=== PATIENT | female | born 1940 | race Two or more races ===

== ENCOUNTER 2020-01-13 16:48 | Inpatient (IN) | payer OTHER ==
[~2020-01-13] VITALS: Ht 152.4 cm; Wt 49.4 kg
[2020-01-26] MEDS ORDERED: CALTRATE 600+D1 EAC1 PO (13:55)
[2020-01-26] MEDS ORDERED: SIMVASTAT PO (13:55)
[2020-01-26] MEDS ORDERED: INTESTINEX680 M1 PO (13:56)
[2020-01-26] MEDS ORDERED: PROPRANOLOL PO (13:56)
[2020-01-26] MEDS ORDERED: PROTONIX40 MG PO (13:57)
[2020-01-26] MEDS ORDERED: OMEGA 3 500 SO1 EACH PO (13:57)
[2020-01-26] MEDS ORDERED: VITAMIN D PO (13:58)
[2020-01-31] MEDS ORDERED: SIMVASTATIN20 MG PO (08:19)
[2020-01-31] MEDS ORDERED: INDERAL LA120 MG PO (08:20)
[2020-01-31] MEDS ORDERED: VITAMIN D3250 MCG (08:20)
[2020-01-31] MEDS ORDERED: PROPRANOLOL HCL40 MG (08:24)
[2020-02-02] MEDS ORDERED: INTESTINEX680 M1 PO (13:22)
[2020-02-02] MEDS ORDERED: PROTONIX40 MG PO (13:22)
[2020-02-02] MEDS ORDERED: OXYC1TAB9 PO (13:22)
[2020-02-02] MEDS ORDERED: DICY20TA PO (13:23)
== END 2020-02-02 14:34 | disposition home or self-care (01) | DRG 331 ==
LOC: O/R 01-30 08:33 → SURG 01-30 08:33 → SURH 01-30 09:00 → SURG 01-30 14:42
PROVIDERS: ADMIT Surgery; ATTEND Surgery
PROC: 0DBN4ZZ Excision of Sigmoid Colon, Percutaneous Endoscopic Approach (ICD-10-PCS; 2020-01-30)
PROC: 0DBP4ZZ Excision of Rectum, Percutaneous Endoscopic Approach (ICD-10-PCS; principal; 2020-01-30 09:00)
DX: K57.30 Diverticulosis of large intestine without perforation or abscess without bleeding (principal); D12.6 Benign neoplasm of colon, unspecified; I11.9 Hypertensive heart disease without heart failure; E78.00 Pure hypercholesterolemia, unspecified